=== PATIENT | male | born 1945 | race Caucasian/White ===

== ENCOUNTER → 2020-05-02 | Outpatient (CLI) | payer BC, MEDICARE ==
[~2020-05-02] MED LIST: COLACE 100MG C100 MG PO; COZAAR100 MG PO; FISH OIL + D31 EACH PO; KEFLEX CAP 500500 MG PO; NORCO 5-325 TA1 EACH PO; NORVASC 5 MG TAB5 MG PO; OMEPRAZOLE20 M1 PO; Voltaren Gel 1 % TOP; XARELTO15 MG PO
== END ==
LOC: KOH-I 14:00
DX: D44.0 Neoplasm of uncertain behavior of thyroid gland (principal); E07.9 Disorder of thyroid, unspecified
CPT/HCPCS: 76536

== ENCOUNTER → 2020-06-07 | Outpatient (CLI) | payer BC, MEDICARE | LOC: US 08:30 | PROC: 0GBG3ZX Excision of Left Thyroid Gland Lobe, Percutaneous Approach, Diagnostic (ICD-10-PCS; principal; 2020-06-07) | DX: E04.1 Nontoxic single thyroid nodule (principal); Z20.822 Contact with and (suspected) exposure to COVID-19 ==

== ENCOUNTER → 2020-10-07 | Outpatient (CLI) | payer BC, MEDICARE | LOC: KOH-I 12:45 | DX: R91.1 Solitary pulmonary nodule (principal) | CPT/HCPCS: 71250 ==

== ENCOUNTER → 2021-02-05 | Outpatient (CLI) | payer BC, MEDICARE | LOC: KOH-I 15:30 | DX: D34 Benign neoplasm of thyroid gland (principal) | CPT/HCPCS: 76536 ==